=== PATIENT | male | born 1955 | race Caucasian/White ===

== ENCOUNTER 2018-11-25 22:00 | Emergency (ER) | payer OTHER ==
[2018-11-25 22:11] VITALS: TEMP 98; BMI 26.1
--- NOTE | 2018-11-25 22:29 | PDOC ---
History of Present Illness - General Chief Complaint: Blood Pressure Problem Stated Complaint: HIGH BLOOD PRESSURE Time Seen by Provider: 11/25/18 22:28 History Source: Patient Exam Limitations: No Limitations - History of Present Illness Initial Comments: 11/25/18 22:57 63 year old male with PMH HTN, HLD presented to ED for high blood pressure since Tuesday, worsening today. Pt complained of frontal headache and eye burning. Pt denied chest pain, shortness of breath, lower extremity swelling, abdominal pain, blood in urine, or any other complaints. Pt stated he was diagnosed with HTN in 10/2018, has been having difficulty maintaining normal blood pressure. Pt stated he called his PCP yesterday, who told him to double his Losartan 50 mg daily dose to 100 mg daily. Pt stated he took 100 mg last night, but today continues to have high blood pressure. Pt stated after he took the 100 mg tonight, his BP was 190/110 45 minutes later, so he came to the ED. Allergies: NKDA Past History - Past Medical History Allergies/Adverse Reactions: Allergies Allergy/AdvReac Type Severity Reaction Status Date / Time No Known Allergies Allergy Verified 12/01/14 11:20 Home Medications: Ambulatory Orders Rosuvastatin Calcium [Crestor] 5 mg PO DAILY 01/12/13 Losartan Potassium [Cozaar -] 50 mg PO BID 11/25/18 Anemia: No Asthma: No Cancer: No Cardiac Disorders: No CVA: No COPD: No CHF: No Dementia: No Diabetes: No GI Disorders: No Disorders: No HTN: Yes Hypercholesterolemia: Yes Liver Disease: No Seizures: No Thyroid Disease: No - Surgical History Abdominal Surgery: No (RAJIV) Appendectomy: Yes Cardiac Surgery: No Cholecystectomy: No Lung Surgery: No Neurologic Surgery: Yes (LAMINECTOMY WITH FUSION) Orthopedic Surgery: No - Suicide/Smoking/Psychosocial Hx Smoking History: Never smoked Have you smoked in the past 12 months: No Information on smoking cessation initiated: No Hx Alcohol Use: No Drug/Substance Use Hx: No Hx Substance Use Treatment: No Review of Systems - Review of Systems Able to Perform ROS?: Yes Comments:: 11/25/18 23:00 General: denied fever, chills, night sweats, generalized weakness. HEENT: denied sore throat, rhinorrhea, ear pain. Eyes: admitted to eye burning. denied blurry vision. Heart: denied chest pain, palpitations, syncope, lower extremity swelling, diaphoresis. Respiratory: denied shortness of breath, cough, sputum production, hemoptysis. Abdomen: denied abdominal pain, nausea, vomiting, diarrhea, constipation, blood in stool. : denied dysuria, increased urinary frequency, hematuria, urinary incontinence , flank pain. Back: denied back pain. Musculoskeletal: denied joint pain, muscle pain, joint swelling. Neurological: admitted to headache. denied dizziness, numbness, tingling, weakness. Skin: denied rash, laceration, abrasion. *Physical Exam - Vital Signs Last Vital Signs Temp Pulse Resp BP Pulse Ox 98.0 F 59 L 16 176/94 H 60 L 11/25/18 22:08 11/25/18 22:08 11/25/18 22:08 11/25/18 22:08 11/25/18 22:08 - Physical Exam Comments: 11/25/18 23:01 Constitutional: Well-nourished, Well-developed, appearing stated age. HEENT: head is normocephalic, atraumatic. EOMI. PERRLA. Neck: supple. Full ROM. Heart: regular rhythm. no murmurs, rubs or gallops. Lungs: clear to auscultation bilaterally. no crackles, rhonchi or wheezing. no stridor. Abdomen: soft, nontender. normal bowel sounds. no rebound, guarding, masses. Extremities: Peripheral pulses intact. No lower extremity edema. Neurological: CN 2-12 intact. 5/5 strength all extremities. no facial drooping. normal gait. no ataxia. Psych: awake, alert, oriented x3. Follows commands. Answers questions appropriately. Moderate Sedation - Procedure Monitoring Vital Signs: Procedure Monitoring Vital Signs Temperature 98.0 F 11/25/18 22:08 Pulse Rate 59 L 11/25/18 22:08 Respiratory Rate 16 11/25/18 22:08 Blood Pressure 176/94 H 11/25/18 22:08 O2 Sat by Pulse Oximetry (%) 60 L 11/25/18 22:08 ED Treatment Course - LABORATORY CBC & Chemistry Diagram: 11/25/18 22:12 11/25/18 22:12 Medical Decision Making - Medical Decision Making 11/25/18 22:54 63 year old male with above PMH presented to ED for high blood pressure associated with frontal headache and eye burning. Initial Vital Signs Temp Pulse Resp BP Pulse Ox 98.0 F 59 L 16 176/94 H 60 L 11/25/18 22:08 11/25/18 22:08 11/25/18 22:08 11/25/18 22:08 11/25/18 22:08 Afebrile. Borderline bradycardia. No tachypnea. Hypertensive. Satting 99% on room air - pulse Ox likely an error. o Labs ordered: CBC, CMP, UA, BNP, troponin c Imaging ordered: CXR, CT head g Medications ordered: none Repeat Vital Signs With No Medical Intervention Temperature 98.0 F 11/25/18 22:08 Pulse Rate 57 L 11/25/18 22:50 Respiratory Rate 18 11/25/18 22:50 Blood Pressure 158/98 11/25/18 22:50 O2 Sat by Pulse Oximetry (%) 99 11/25/18 22:50 Afebrile. Borderline tachycardia. Improving hypertension. No hypoxia on room air. EKG performed at 2358: rate 54, regular rhythm, normal axis, LVH, no acute ST changes. c CXR my interpretation: sharp costophrenic angles. no infiltrate. no cardiomegaly. no pulmonary vascular congestion. no large pneumothorax. - Pending official read. 11/25/18 23:04 CBC WBC 5.9 K/mm3 (4.0-10.0) 11/25/18 22:12 RBC 4.93 M/mm3 (4.00-5.60) 11/25/18 22:12 Hgb 15.7 GM/dL (11.7-16.9) 11/25/18 22:12 Hct 42.7 % (35.4-49) 11/25/18 22:12 MCV 86.5 fl (80-96) 11/25/18 22:12 MCH 31.8 pg (25.7-33.7) 11/25/18 22:12 MCHC 36.8 g/dl (32.0-35.9) H 11/25/18 22:12 RDW 13.3 % (11.9-15.9) 11/25/18 22:12 Plt Count 198 K/MM3 (134-434) 11/25/18 22:12 MPV 8.0 fl (7.5-11.1) 11/25/18 22:12 Absolute Neuts (auto) 3.3 K/mm3 (1.5-8.0) 11/25/18 22:12 Neutrophils % 55.8 % (42.8-82.8) 11/25/18 22:12 Lymphocytes % 34.4 % (8-40) 11/25/18 22:12 Monocytes % 7.3 % (3.8-10.2) 11/25/18 22:12 Eosinophils % 1.9 % (0-4.5) 11/25/18 22:12 Basophils % 0.6 % (0-2.0) 11/25/18 22:12 Nucleated RBC % 0 % (0-0) 11/25/18 22:12 No leukocytosis. No anemia. 11/25/18 23:26 CMP Sodium 139 mmol/L (136-145) 11/25/18 22:12 Potassium 4.5 mmol/L (3.5-5.1) 11/25/18 22:12 Chloride 105 mmol/L (98-107) 11/25/18 22:12 Carbon Dioxide 28 mmol/L (21-32) 11/25/18 22:12 Anion Gap 5 MMOL/L (8-16) L 11/25/18 22:12 BUN 20 mg/dL (7-18) H 11/25/18 22:12 Creatinine 0.9 mg/dL (0.55-1.3) 11/25/18 22:12 Creat Clearance w eGFR > 60 (>60) 11/25/18 22:12 Random Glucose 100 mg/dL (74-106) 11/25/18 22:12 Calcium 8.4 mg/dL (8.5-10.1) L 11/25/18 22:12 Total Bilirubin 0.4 mg/dL (0.2-1) 11/25/18 22:12 AST 16 U/L (15-37) 11/25/18 22:12 ALT 30 U/L (13-61) 11/25/18 22:12 Alkaline Phosphatase 92 U/L (45-117) 11/25/18 22:12 Troponin I < 0.02 ng/ml (0.00-0.05) 11/25/18 22:12 B-Natriuretic Peptide 62.7 pg/ml (5-125) 11/25/18 22:12 Total Protein 7.7 g/dl (6.4-8.2) 11/25/18 22:12 Albumin 4.1 g/dl (3.4-5.0) 11/25/18 22:12 No electrolyte abnormalities. No REJI. Mild dehydration. No transaminitis. Normal troponin. No BNP elevation. 11/25/18 23:[address] head report: negative for acute intracranial pathology. Urine Test Results Urine Color Ltyellow 11/25/18 23:20 Urine Appearance Clear 11/25/18 23:20 Urine pH 7.0 (5.0-8.0) 11/25/18 23:20 Ur Specific [place] 1.015 (1.010-1.035) 11/25/18 23:20 Urine Protein Negative (NEGATIVE) 11/25/18 23:20 Urine Glucose (UA) Negative (NEGATIVE) 11/25/18 23:20 Urine Ketones Negative (NEGATIVE) 11/25/18 23:20 Urine Blood Negative (NEGATIVE) 11/25/18 23:20 Urine Nitrite Negative (NEGATIVE) 11/25/18 23:20 Urine Bilirubin Negative (<2.0 mg/dL) 11/25/18 23:20 Ur Leukocyte Esterase Trace (NEGATIVE) 11/25/18 23:20 Negative urine for protein and blood. Pt reported no change in symptoms. Pt discharged with instructions to follow up with PCP. *DC/Admit/Observation/Transfer Diagnosis at time of Disposition: Hypertension, Headache - Discharge Dispostion Disposition: HOME Condition at time of disposition: Improved Decision to Admit order: No - Referrals Referrals: Farzad Wood MD [Primary Care Provider] - Amarjit Schumacher MD [Staff Physician] - - Patient Instructions Printed Discharge Instructions: DI for High Blood Pressure, How to Monitor Your Blood Pressure at Home Additional Instructions: Your lab work was normal. Your chest X-ray was normal. Your CAT scan of your head was normal. Your EKG showed possible left ventricular hypertrophy. Follow up with your primary care doctor in 1-2 days. Your care is not complete until you follow up. Follow up with a county court judge on your EKG finding. Bring the copy given to you today to your appointment. I have provided you with a referral. Return to the Emergency Department for visual changes, increasing headache, chest pain, shortness of breath, blood in urine, abdominal pain, weakness, numbness, tingling or any other new, worsening or concerning symptoms. - Post Discharge Activity Forms/Work/School Notes: Back to Work
[2018-11-25 22:54] LABS: BASO % 0.6 % (0-2.0); EOS % 1.9 % (0-4.5); HEMATOCRIT 42.7 % (35.4-49); HEMOGLOBIN 15.7 GM/dL (11.7-16.9); LYMPH % 34.4 % (8-40); MCH 31.8 pg (25.7-33.7); MCHC 36.8 g/dl (32.0-35.9); MEAN CELL VOLUME 86.5 fl (80-96); MONO % 7.3 % (3.8-10.2); NEUT % 55.8 % (42.8-82.8); PLATELET COUNT 198 K/MM3 (134-434); RBC 4.93 M/mm3 (4.00-5.60); RDW 13.3 % (11.9-15.9); WHITE BLOOD COUNT 5.9 K/mm3 (4.0-10.0)
[2018-11-25 22:58] VITALS: BP 158/98; PULSE 57
[2018-11-25 23:24] LABS: ALBUMIN 4.1 g/dl (3.4-5.0); ALK PHOS 92 U/L (45-117); ANION GAP 5 MMOL/L (8-16); BILIRUBIN,TOTAL 0.4 mg/dL (0.2-1); BLOOD UREA NITROGEN 20 mg/dL (7-18); CALCIUM 8.4 mg/dL (8.5-10.1); CHLORIDE 105 mmol/L (98-107); CO2 28 mmol/L (21-32); CREATININE 0.9 mg/dL (0.55-1.3); GLUCOSE,RANDOM 100 mg/dL (74-106); N-TERMINAL BNP 62.7 pg/ml (5-125); POTASSIUM 4.5 mmol/L (3.5-5.1); SGOT/AST 16 U/L (15-37); SGPT/ALT 30 U/L (13-61); SODIUM 139 mmol/L (136-145); TOT PROT 7.7 g/dl (6.4-8.2)
[2018-11-25 23:31] LABS: URINE APPEARANCE CLEAR; URINE BILIRUBIN NEGATIVE (<2.0 mg/dL); URINE COLOR LTYELLOW; URINE GLUCOSE (UA) NEGATIVE (NEGATIVE); URINE KETONE NEGATIVE (NEGATIVE); URINE LEUK ESTERASE TRACE (NEGATIVE); URINE NITRITE NEGATIVE (NEGATIVE); URINE PROTEIN NEGATIVE (NEGATIVE); URINE UROBILINOGEN 4.0 E.U/dl mg/dL (0.2-1.0)
--- NOTE | 2018-11-26 | PDOC ---
Attending Attestation - HPI HPI: 11/26/18 00:05 The patient is a 63 year old male with past medical history significant for HTN (dx October, on Losartan) and HLD presents to the emergency department with elevated blood pressure. The patient reports since Tuesday hes been having elevated BP to the 160s. The patient states his BP was noted to be in the 190 s yesterday, reports calling PCP, who told the patient to take 2 of 50 mg Losartan. The patient reports earlier today his SBP was noted to be in the 190 s and was concerned. The patient reports associated symptoms of eye burning sensation and mild frontal ZABALA. Allergies: NKDA PCP: Farzad Villaseñor MD. - Physicial Exam PE: 11/26/18 00:09 Vitals: Triage vital signs reviewed General Appearance: No acute distress, well nourished, well developed Neck: Supple; No nuchal rigidity Chest Wall: Nontender Cardiac: Regular rate and rhythm, no murmurs, no rubs, no gallops Lungs: Clear to auscultation bilateral, good air movement bilaterally Abdomen: Soft, nondistended, normal bowel sounds, nontender to palpation Extremities: Full range of motion to all extremities, no cyanosis, clubbing, or edema Skin: Warm and dry, no rashes or lesions, no rash, no petechiae. - Medical Decision Making 11/26/18 00:05 Plan: EKG: EKG performed at 23:58 demonstrates vent. rate of 54 bpm, SD interval 204ms , QRS duration 116ms, no T wave inversions, no ST elevations. Head CT: IMPRESSION: No acute pathology. THIS DOCUMENT HAS BEEN ELECTRONICALLY SIGNED Donovan Amaya MD 11/25/2018 23:24 EST Labs: CBC, CMP, BNP, Troponin, UA, Radiology: Chest X-ray. 11/26/18 00:09 Documentation prepared by Viviane Chavarria, acting as medical claims processor for Aryan Diallo MD. <Viviane Chavarria - Last Filed: 11/26/18 00:04> - Resident Resident Name: Jennifer Gil - ED Attending Attestation I have performed the following: I have examined & evaluated the patient, The case was reviewed & discussed with the resident, I agree w/resident's findings & plan, Exceptions are as noted - Medical Decision Making Slightly elevated blood pressure home patient complained of very mild head discomfort labs head CT EKG all within normal limits possibly slight LVH on EKG Patient provided with cardiology follow-up told to have his blood pressure rechecked by his primary care provider on Tuesday Findings, need for follow-up and strict return instructions discussed with patient. <Aryan Diallo - Last Filed: 11/26/18 00:55>
--- NOTE | 2018-11-26 12:47 | EKG ---
Test Reason : Blood Pressure : / mmHG Vent. Rate : 054 BPM Atrial Rate : 054 BPM P-R Int : 204 ms QRS Dur : 116 ms QT Int : 438 ms P-R-T Axes : 035 012 009 degrees QTc Int : 415 ms SINUS BRADYCARDIA LEFT VENTRICULAR HYPERTROPHY WITH QRS WIDENING ABNORMAL ECG Confirmed by JUAN ALBERTO BOB MD ([id number]) on 11/26/2018 12:47:15 PM Referred By: Confirmed By:JUAN ALBERTO BOB MD
== END 2018-11-26 00:55 | disposition home or self-care (01) ==
LOC: JER 22:00
DX: I10 Essential (primary) hypertension (principal); E78.00 Pure hypercholesterolemia, unspecified
CPT/HCPCS: 36415; 70450-TC; 71045-TC-FY; 80053; 81003; 81015; 83880; 84484; 85025; 93005; 93010; 99282-25

== ENCOUNTER 2020-12-03 04:59 | Day surgery (SDC) | payer OTHER ==
[2020-12-03 08:31] VITALS: BMI 29.2
[2020-12-03 09:45] VITALS: TEMP 97.9
[2020-12-03 10:57] VITALS: BP 143/75; PULSE 55
== END 2020-12-03 10:35 | disposition home or self-care (01) ==
LOC: JASU-ENDO 04:59
PROVIDERS: ATTEND Internal Medicine Gastroenterology
PROC: 0DBP8ZX Excision of Rectum, Via Natural or Artificial Opening Endoscopic, Diagnostic (ICD-10-PCS; principal; 2020-12-03 09:00)
DX: K62.1 Rectal polyp (principal); K57.30 Diverticulosis of large intestine without perforation or abscess without bleeding

== ENCOUNTER 2021-01-18 19:25 | Emergency (ER) | payer OTHER ==
[2021-01-20 10:07] LABS: SARS-CoV-2 NAA Detected (Not Detected)
== END 2021-01-18 19:32 | disposition home or self-care (01) ==
LOC: JVIRT 19:25
DX: U07.1 COVID-19 (principal)
CPT/HCPCS: C9803; G2251-GT; U0003; U0005

== ENCOUNTER 2021-01-20 13:27 | Emergency (ER) | payer OTHER ==
[2021-01-20] MEDS ORDERED: BAMLANIVIMAB 700 MG, ETESEVIMAB 1,400 MG in SODIUM CHLORIDE 250 ML IVPB ONE (13:56)
[2021-01-20 14:26] VITALS: TEMP 98.5; BMI 26.9
[2021-01-20 14:53] LABS: HEMOGLOBIN 15.5 GM/dL (11.7-16.9); MCH 30.7 pg (25.7-33.7); MCHC 36.1 g/dl (32.0-35.9); MEAN PLT VOLUME 7.2 fl (7.5-11.1); PLATELET COUNT 149 K/MM3 (134-434); RBC 5.06 M/mm3 (4.00-5.60); WHITE BLOOD COUNT 2.7 K/mm3 (4.0-10.0)
[2021-01-20 15:14] LABS: CALCIUM 9.5 mg/dL (8.5-10.1)
[2021-01-20 15:18] LABS: CREATININE 1.1 mg/dL (0.55-1.3)
[2021-01-20 18:31] VITALS: BP 121/72; PULSE 78
== END 2021-01-20 18:31 | disposition home or self-care (01) ==
LOC: JCOVINFU 13:27
DX: U07.1 COVID-19 (principal)
CPT/HCPCS: 36415; 80048; 85027; 99284-25; M0239; Q0239; Q0245

== ENCOUNTER 2025-05-31 06:21 | Day surgery (SDC) | payer OTHER ==
[2025-05-17 13:52] VITALS: BMI 27.2
[2025-05-31 09:47] VITALS: TEMP 98
[2025-05-31 10:56] VITALS: RESP 16
[2025-05-31 11:13] VITALS: BP 100/60; PULSE 60
== END 2025-05-31 11:19 | disposition home or self-care (01) ==
LOC: JASU-ENDO 06:21
PROVIDERS: ATTEND Internal Medicine Gastroenterology
PROC: 0DJD8ZZ Inspection of Lower Intestinal Tract, Via Natural or Artificial Opening Endoscopic (ICD-10-PCS; principal; 2025-05-31 11:00)
DX: Z12.11 Encounter for screening for malignant neoplasm of colon (principal); K57.30 Diverticulosis of large intestine without perforation or abscess without bleeding; K64.8 Other hemorrhoids; Z86.0100 Personal history of colon polyps, unspecified